=== PATIENT | male | born 1995 | race Asian ===

== ENCOUNTER 2017-08-05 02:50 | Emergency (ER) | payer OTHER ==
[2017-08-05] MEDS ORDERED: NS 0.9% 1000 ML* 1,000 ML IV ONE (02:58)
[2017-08-05] MEDS ORDERED: Famotidine IV* 10 MG/ML 2 ML (20 mg) IV SLOW PU ONE (02:58)
[2017-08-05] MEDS ORDERED: Ondansetron ODT TAB* 4 MG PO ONE (02:58)
[2017-08-05 05:55] VITALS: BP 100/59
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
== END 2017-08-05 06:52 | disposition home or self-care (01) ==
LOC: ED 02:50
DX: F10.921 Alcohol use, unspecified with intoxication delirium (principal)
CPT/HCPCS: 96374; 96375; 99282; A9270-GY